=== PATIENT | female | born 1975 | race Hispanic/Latino ===

== ENCOUNTER → 2018-08-25 | Day surgery (SDC) | payer BC ==
[~2018-08-25] MED LIST: FENTANYL CITRATE/PF 100MCG/2 ML INJ ONE; LEVOTHYROXINE112 MCG PO; LISINOPRIL10 MG PO; MIDAZOLAM HCL 2 MG/2 ML VIAL ONE; PROPOFOL IV EMULSION 10 MG/ML 50 ML VIAL ONE
--- OUTSIDE RECORDS SUMMARY | 2018-08-25 11:10 | XMS REPORT ---
Author Author [facility] Address Unknown Phone Unavailable Care Team Providers Care Film Reader Name Role Phone Unavailable Unavailable Problems This patient has no known problems. Allergies, Adverse Reactions, Alerts This patient has no known allergies or adverse reactions. Medications This patient has no known medications. Encounters Start Date/Time End Date/Time Encounter Type Admission Type Attending [facility] Care Department Encounter ID 2018-07-16 10:29:00 2018-07-16 10:29:00 Emergency E [id number]
--- OUTSIDE RECORDS SUMMARY | 2018-08-25 11:10 | XMS REPORT | Summary of Care ---
Author Author [facility] Organization [facility] Address Unknown Phone Unavailable Encounter GAUTAM Saldana(FIN) [id number] Date(s): 07/16/18 - 07/16/18 [facility] [address] [place] [address]- [phone] Encounter Diagnosis Colitis (Discharge Diagnosis) - 07/16/18 Hematuria (Discharge Diagnosis) - 07/16/18 Discharge Disposition: Home or Self Care Attending Physician: Valdemar Olivares MD Vital Signs Most recent to 1 2 oldest [Reference Range]: Height 165.1 cm (07/16/18 10:30 AM) Temperature Oral 97.9 DegF 98.2 DegF [96.4-99.1 DegF] (07/16/18 3:50 PM) (07/16/18 10:30 AM) Blood Pressure 107/63 mmHg 101/69 mmHg [90-140/60-90 mmHg] (07/16/18 3:50 PM) (07/16/18 10:30 AM) Respiratory Rate 18 BRMIN 18 BRMIN [14-20 BRMIN] (07/16/18 3:50 PM) (07/16/18 10:30 AM) Peripheral Pulse 83 bpm 93 bpm Rate [60-100 bpm] (07/16/18 3:50 PM) (07/16/18 10:30 AM) Weight 93.182 kg (07/16/18 10:30 AM) Body Mass Index 34.19 m2 (07/16/18 10:30 AM) Problem List No data available for this section Allergies, Adverse Reactions, Alerts Substance Reaction Severity Status NKDA Active Medications Bentyl 20 mg oral tablet 20 mg=1 tab, PO, QID-Before Meals, PRN Abdominal Pain, # 12 tab, 0 Refill(s) Start Date: 07/16/18 Stop Date: 07/19/18 Status: Ordered Cipro 500 mg, Route: PO, ONCE, Dosing Weight 93.182, kg, Priority: STAT, Start date: 0 07/16/18 13:50:00 CDT, Stop date: 07/16/18 13:50:00 CDT, ABX Indication: Intra-ab dominal Infection Start Date: 07/16/18 Stop Date: 07/16/18 Status: Completed Cipro 500 mg oral tablet 500 mg=1 tab, PO, Q12H, X 10 day, # 20 tab, 0 Refill(s) Start Date: 07/16/18 Stop Date: 07/26/18 Status: Ordered Flagyl 500 mg, Route: PO, ONCE, Dosing Weight 93.182, kg, Priority: STAT, Start date: 0 07/16/18 13:50:00 CDT, Stop date: 07/16/18 13:50:00 CDT, ABX Indication: Intra-ab dominal Infection Start Date: 07/16/18 Stop Date: 07/16/18 Status: Completed Flagyl 500 mg oral tablet 500 mg=1 tab, PO, Q8H, X 10 day, # 30 tab, 0 Refill(s) Start Date: 07/16/18 Stop Date: 07/26/18 Status: Ordered ketOROLAC 30 mg, 1 mL, Route: IVP, Drug form: INJ, ONCE, Dosing Weight 93.182, kg, Priorit y: STAT, Start date: 07/16/18 11:12:00 CDT, Stop date: 07/16/18 11:12:00 CDT Notes: (Same as:Toradol) IV bolus must be given >15 seconds. Give IM administration slowly and deeply into the muscle.Not for use > 4 days MEDICATION WASTE Product Size: 30 mgProduct Wasted: ___ mg Start Date: 07/16/18 Stop Date: 07/16/18 Status: Completed morphine Sulfate 4 mg, Route: IVP, ONCE, Dosing Weight 93.182, kg, Priority: STAT, Start date: 13:11:00 CDT, Stop date: 07/16/18 13:11:00 CDT Start Date: 07/16/18 Stop Date: 07/16/18 Status: Completed ondansetron 4 mg, 2 mL, Route: IVP, Drug form: INJ, ONCE, Dosing Weight 93.182, kg, Priority : STAT, Start date: 07/16/18 15:10:00 CDT, Stop date: 07/16/18 15:10:00 CDT Notes: (Same as: Zofran) MEDICATION WASTE Product Size: 4 mgProduct Was moises: 0 mg Start Date: 07/16/18 Stop Date: 07/16/18 Status: Completed ondansetron 4 mg, Route: IVP, Drug form: INJ, ONCE, Dosing Weight 93.182, kg, Priority: STAT , Start date: 07/16/18 13:11:00 CDT, Stop date: 07/16/18 13:11:00 CDT Start Date: 07/16/18 Stop Date: 07/16/18 Status: Completed Sodium Chloride 0.9% (Bolus) IV 1,000 mL, 1000 ml/hr, Infuse Over: 1 hr, Route: IV, 1,000, Drug form: INJ, ONCE, Priority: STAT, Dosing Weight 93.182 kg, Start date: 07/16/18 11:11:00 CDT, Stop date: 07/16/18 11:11:00 CDT Start Date: 07/16/18 Stop Date: 07/16/18 Status: Completed Zofran 4 mg oral tablet 4 mg=1 tab, PO, Q8H, PRN Nausea/vomiting, # 9 tab, 0 Refill(s) Start Date: 07/16/18 Stop Date: 07/19/18 Status: Ordered Results ELECTROLYTES Most recent to 1 oldest [Reference Range]: Sodium Lvl [135-145 139 mEq/L mEq/L] (07/16/18 11:29 AM) Potassium Lvl 3.8 mEq/L [3.5-5.1 mEq/L] (07/16/18 11:29 AM) Chloride Lvl [95-109 105 mEq/L mEq/L] (07/16/18 11:29 AM) CO2 [24-32 mEq/L] 25 mEq/L (07/16/18 11:29 AM) AGAP [10.0-20.0 12.8 mEq/L mEq/L] (07/16/18 11:29 AM) CHEM PANEL Most recent to 1 oldest [Reference Range]: Creatinine Lvl 0.98 mg/dL [0.50-1.40 mg/dL] (07/16/18 11:29 AM) eGFR 70 mL/min/1.73m2 1 *NA* (07/16/18 11:29 AM) BUN [7-22 mg/dL] 8 mg/dL (07/16/18 11:29 AM) B/C Ratio [6-25] 8 (07/16/18 11:29 AM) Glucose Lvl [70-99 87 mg/dL mg/dL] (07/16/18 11:29 AM) Total Protein 7.7 g/dL [6.4-8.4 g/dL] (07/16/18 11: AM) Albumin Lvl [3.5-5.0 3.0 g/dL g/dL] *LOW* (07/16/18: AM) Globulin [2.7-4.2 4.7 g/dL g/dL] *HI* (07/16/18 11: AM) A/G Ratio [0.7-1.6] 0.6 *LOW* (07/16/18 11: AM) Calcium Lvl 8.4 mg/dL [8.5-10.5 mg/dL] *LOW* (07/16/18 11:29 AM) ALT [0-65 unit/L] 12 unit/L (07/16/18 11:29 AM) AST [0-37 unit/L] 9 unit/L (07/16/18 11:29 AM) Alk Phos [39-136 70 unit/L unit/L] (07/16/18 11:29 AM) Bili Total [0.2-1.3 0.5 mg/dL mg/dL] (07/16/18 11:29 AM) Lipase Lvl [73-393 85 unit/L unit/L] (07/16/18 11:29 AM) 1Result Comment: The eGFR is calculated using the CKD-EPI formula. In most young, healthy individuals the eGFR will be >90 mL/min/1.73m2. The eGFR declines with age. An eGFR of 60-89 may be normal in some populations, particularly the elderly, for whom the CKD-EPI formula has not been extensively validated. Use of the eGFR is not recommended in the following populations: Individuals with unstable creatinine concentrations, including patients and those with serious co-morbid conditions. Patients with extremes in muscle mass or diet. The data above are obtained from the National Kidney Disease Education Program ( NKDEP) which additionally recommends that when the eGFR is used in patients with extremes of body mass index for purposes of drug dosing, the eGFR should be mul tiplied by the estimated BMI. ENDOCRINOLOGY Most recent to 1 oldest [Reference Range]: S Preg [Negative] Negative *NA* (07/16/18 11:29 AM) URINE AND STOOL Most recent to 1 oldest [Reference Range]: UA Turbidity [Clear] Slight Cloudy (07/16/18 11:29 AM) UA Color [Yellow] Amy *ABN* (07/16/18 11:29 AM) UA pH [5.0-8.0] 6.0 (07/16/18 11:29 AM) UA Spec Grav >=1.030 [<=1.030] *ABN* (07/16/18 11:29 AM) UA Glucose Negative [Negative] (07/16/18 11:29 AM) UA Blood [Negative] Large *ABN* (07/16/18 11:29 AM) UA Ketones 15 [Negative] *ABN* (07/16/18 11:29 AM) UA Protein Trace [Negative] *ABN* (07/16/18 11:29 AM) UA Urobilinogen 0.2 EU/dL 1 [0.1-1.0 EU/dL] (07/16/18 11:29 AM) UA Bili [Negative] Small *ABN* (07/16/18 11:29 AM) UA Leuk Est Negative [Negative] (07/16/18 11:29 AM) UA Nitrite Negative [Negative] (07/16/18 11:29 AM) UA WBC [0-5 /HPF] 1 /HPF (07/16/18 11:29 AM) UA RBC [0-2 /HPF] 43 /HPF *HI* (07/16/18 11:29 AM) UA Sq Epi [Few /LPF] Many /LPF *ABN* (07/16/18 11:29 AM) UA Mucus [None Seen Moderate /LPF /LPF] *ABN* (07/16/18 11:29 AM) 1Result Comment: Urobilinogen performed on the Clinitek analyzer. HEMATOLOGY Most recent to 1 oldest [Reference Range]: WBC [3.7-10.4 K/CMM] 15.9 K/CMM *HI* (07/16/18 11:29 AM) RBC [4.20-5.40 4.20 M/CMM M/CMM] (07/16/18 11:29 AM) Hgb [12.0-16.0 g/dL] 10.7 g/dL *LOW* (07/16/18:29 AM) Hct [36.0-48.0 %] 32.9 % *LOW* (07/16/18: AM) MCV [80.0-98.0 fL] 78.4 fL *LOW* (07/16/18:29 AM) MCH [27.0-31.0 pg] 25.4 pg *LOW* (07/16/18:29 AM) MCHC [32.0-36.0 32.4 g/dL g/dL] (07/16/18 11:29 AM) RDW [11.5-14.5 %] 14.8 % *HI* (07/16/18:29 AM) MPV [7.4-10.4 fL] 8.0 fL (07/16/18 11:29 AM) Platelet [133-450 226 K/CMM K/CMM] (07/16/18 11:29 AM) Segs [45.0-75.0 %] 82.8 % *HI* (07/16/18:29 AM) Lymphocytes 10.9 % [20.0-40.0 %] *LOW* (07/16/18 11:29 AM) Monocytes [2.0-12.0 5.6 % %] (07/16/18 11:29 AM) Eosinophils [0.0-4.0 0.2 % %] (07/16/18 11:29 AM) Basophils [0.0-1.0 0.5 % %] (07/16/18 11:29 AM) Neutrophils # 13.2 K/CMM [1.5-8.1 K/CMM] *HI* (07/16/18 11:29 AM) Lymphocytes # 1.7 K/CMM [1.0-5.5 K/CMM] (07/16/18 11:29 AM) Monocytes # [0.0-0.8 0.9 K/CMM K/CMM] *HI* (07/16/18 11:29 AM) Basophils # [0.0-0.2 0.1 K/CMM K/CMM] (07/16/18 11:29 AM) Microcyte [None 1+ Seen] *ABN* (07/16/18 11:29 AM) Immunizations No data available for this section Procedures No data available for this section Social History Social History Type Response Smoking Status Never smoker; Exposure to Tobacco Smoke None; Cigarette Smoking Last 365 Days No; Reg Smoking Cessation Counseling No entered on: 07/16/18 Assessment and Plan No data available for this section
--- OUTSIDE RECORDS SUMMARY | 2018-08-25 11:10 | XMS REPORT | Continuity of Care Document ---
Author Author [facility] Interface Address Unknown Phone Unavailable Problems Problem Status Onset Date Classification Date Reported Comments Source Colitis 07/16/2018 07/18/2018 [facility] Hematuria 07/16/2018 07/18/2018 [facility] HIGH BP/ABD PAIN Active 07/16/2018 [facility] Medications Medication Details Route Status Patient Instructions Ordering Provider Order Date Source Ondansetron 4 MG Oral Tablet [Zofran] 4 mg=1 tab, PO, Q8H, PRN Nausea/vomiting, # 9 tab, 0 Refill(s) Active 07/16/2018 [facility] Dicyclomine Hydrochloride 20 MG Oral Tablet [Bentyl] 20 mg=1 tab, PO, QID-Before Meals, PRN Abdominal Pain, # 12 tab, 0 Refill(s) Active 07/16/2018 [facility] Metronidazole 500 MG Oral Tablet [Flagyl] 500 mg=1 tab, PO, Q8H, X 10 day, # 30 tab, 0 Refill(s) Active 07/16/2018 [facility] Ciprofloxacin 500 MG Oral Tablet [Cipro] 500 mg=1 tab, PO, Q12H, X 10 day, # 20 tab, 0 Refill(s) Active 07/16/2018 [facility] Ondansetron 4 mg, 2 mL, Route: IVP, Drug form: INJ, ONCE, Dosing Weight 93.182, kg, Priority: STAT, Start date: 07/16/18 15:10:00 CDT, Stop date: 07/16/18 15:10:00 CDTNotes: (Same as: Zofran) MEDICATION WASTE Product Size: 4 mg Product Wasted: 0 mg Inactive 07/16/2018 [facility] Cipro 500 mg, Route: PO, ONCE, Dosing Weight 93.182, kg, Priority: STAT, Start date: 07/16/18 13:50:00 CDT, Stop date: 07/16/18 13:50:00 CDT, ABX Indication: Intra-abdominal Infection Inactive 07/16/2018 [facility] Flagyl 500 mg, Route: PO, ONCE, Dosing Weight 93.182, kg, Priority: STAT, Start date: 07/16/18 13:50:00 CDT, Stop date: 07/16/18 13:50:00 CDT, ABX Indication: Intra-abdominal Infection Inactive 07/16/2018 [facility] Ondansetron 4 mg, Route: IVP, Drug form: INJ, ONCE, Dosing Weight 93.182, kg, Priority: STAT, Start date: 07/16/18 13:11:00 CDT, Stop date: 07/16/18 13:11:00 CDT Inactive 07/16/2018 [facility] Morphine 4 mg, Route: IVP, ONCE, Dosing Weight 93.182, kg, Priority: STAT, Start date: 07/16/18 13:11:00 CDT, Stop date: 07/16/18 13:11:00 CDT Inactive 07/16/2018 [facility] Ketorolac 30 mg, 1 mL, Route: IVP, Drug form: INJ, ONCE, Dosing Weight 93.182, kg, Priority: STAT, Start date: 07/16/18 11:12:00 CDT, Stop date: 07/16/18 11:12:00 CDTNotes: (Same as:Toradol) IV bolus must be given >15 seconds. Give IM administration slowly and deeply into the muscle. Not for use > 4 days MEDICATION WASTE Product Size: 30 mg Product Wasted: ___ mg Inactive 07/16/2018 [facility] Sodium Chloride 0.9% (Bolus) IV 1,000 mL, 1000 ml/hr, Infuse Over: 1 hr, Route: IV, 1,000, Drug form: INJ, ONCE, Priority: STAT, Dosing Weight 93.182 kg, Start date: 07/16/18 11:11:00 CDT, Stop date: 07/16/18 11:11:00 CDT Inactive 07/16/2018 [facility] Allergies, Adverse Reactions, Alerts Substance Category Reaction Severity Reaction type Status Date Reported Comments Source Immunizations Immunization Date Given Site Status Last Updated Comments Source Results Order Name Results Value Reference Range Date Interpretation Comments Source CHEM PANEL Lipase Lvl 85 unit/L 73 - 393 07/16/2018 [facility] CHEM PANEL Globulin 4.7 g/dL 2.7 - 4.2 07/16/2018 [facility] CHEM PANEL A/G Ratio 0.6 0.7 - 1.6 07/16/2018 [facility] CHEM PANEL B/C Ratio 8 6 - 25 07/16/2018 [facility] CHEM PANEL AGAP 12.8 meq/L 10.0 - 20.0 07/16/2018 [facility] CHEM PANEL eGFR 70 mL/min/1.73m2 07/16/2018 Result Comment: The eGFR is calculated using the [...] from the National Kidney Disease Education Program (NKDEP) which additionally recommends that when the eGFR is used in patients with extremes of body mass index for purposes of drug dosing, the eGFR should be multiplied by the estimated BMI. [facility] CHEM PANEL Bili Total 0.5 mg/dL 0.2 - 1.3 07/16/2018 [facility] CHEM PANEL AST 9 unit/L 0 - 37 07/16/2018 [facility] CHEM PANEL Alk Phos 70 unit/L 39 - 136 07/16/2018 [facility] CHEM PANEL ALT 12 unit/L 0 - 65 07/16/2018 [facility] CHEM PANEL Albumin Lvl 3.0 g/dL 3.5 - 5.0 07/16/2018 [facility] CHEM PANEL Calcium Lvl 8.4 mg/dL 8.5 - 10.5 07/16/2018 [facility] CHEM PANEL Total Protein 7.7 g/dL 6.4 - 8.4 07/16/2018 [facility] CHEM PANEL Chloride Lvl 105 meq/L 95 - 109 07/16/2018 [facility] CHEM PANEL CO2 25 meq/L 24 - 32 07/16/2018 [facility] CHEM PANEL Potassium Lvl 3.8 meq/L 3.5 - 5.1 07/16/2018 [facility] CHEM PANEL Creatinine Lvl 0.98 mg/dL 0.50 - 1.40 07/16/2018 [facility] CHEM PANEL Sodium Lvl 139 meq/L 135 - 145 07/16/2018 [facility] CHEM PANEL BUN 8 mg/dL 7 - 22 07/16/2018 [facility] CHEM PANEL Glucose Lvl 87 mg/dL 70 - 99 07/16/2018 [facility] ENDOCRINOLOGY S Preg Negative *NA* (07/16/18 11:29 AM) Negative 07/16/2018 [facility] MCHC 32.4 g/dL 32.0 - 36.0 07/16/2018 [facility] MCH 25.4 pg 27.0 - 31.0 07/16/2018 [facility] MCV 78.4 fL 80.0 - 98.0 07/16/2018 [facility] MPV 8.0 fL 7.4 - 10.4 07/16/2018 [facility] RDW 14.8 % 11.5 - 14.5 07/16/2018 [facility] Platelet 226 K/CMM 133 - 450 07/16/2018 [facility] Hct 32.9 % 36.0 - 48.0 07/16/2018 [facility] Hgb 10.7 g/dL 12.0 - 16.0 07/16/2018 [facility] RBC 4.20 M/CMM 4.20 - 5.40 07/16/2018 [facility] WBC 15.9 K/CMM 3.7 - 10.4 07/16/2018 [facility] Segs 82.8 % 45.0 - 75.0 07/16/2018 [facility] Lymphocytes 10.9 % 20.0 - 40.0 07/16/2018 [facility] Neutrophils # 13.2 K/CMM 1.5 - 8.1 07/16/2018 [facility] Eosinophils 0.2 % 0.0 - 4.0 07/16/2018 [facility] Lymphocytes # 1.7 K/CMM 1.0 - 5.5 07/16/2018 [facility] Basophils 0.5 % 0.0 - 1.0 07/16/2018 [facility] Monocytes 5.6 % 2.0 - 12.0 07/16/2018 [facility] Basophils # 0.1 K/CMM 0.0 - 0.2 07/16/2018 [facility] Microcyte 1+ *ABN* (07/16/18 11:29 AM) None Seen 07/16/2018 [facility] Monocytes # 0.9 K/CMM 0.0 - 0.8 07/16/2018 [facility] URINE AND STOOL UA RBC 43 /HPF 0 - 2 07/16/2018 [facility] URINE AND STOOL UA WBC 1 /HPF 0 - 5 07/16/2018 [facility] URINE AND STOOL UA Bili Small *ABN* (07/16/18 11:29 AM) Negative 07/16/2018 [facility] URINE AND STOOL UA Glucose Negative (07/16/18 11:29 AM) Negative 07/16/2018 [facility] URINE AND STOOL UA Ketones 15 *ABN* (07/16/18 11:29 AM) Negative 07/16/2018 [facility] URINE AND STOOL UA Blood Large *ABN* (07/16/18 11:29 AM) Negative 07/16/2018 [facility] URINE AND STOOL UA Sq Epi Many /LPF Few /LPF 07/16/2018 [facility] URINE AND STOOL UA Nitrite Negative (07/16/18 11:29 AM) Negative 07/16/2018 [facility] URINE AND STOOL UA Leuk Est Negative (07/16/18 11:29 AM) Negative 07/16/2018 [facility] URINE AND STOOL UA Urobilinogen 0.2 EU/dL 0.1 - 1.0 07/16/2018 Result Comment: Urobilinogen performed on the Clinitek analyzer. [facility] URINE AND STOOL UA Mucus Moderate /LPF None Seen /LPF 07/16/2018 [facility] URINE AND STOOL UA Protein Trace *ABN* (07/16/18 11:29 AM) Negative 07/16/2018 [facility] URINE AND STOOL UA pH 6.0 5.0 - 8.0 07/16/2018 [facility] URINE AND STOOL UA Color Amy *ABN* (07/16/18 11:29 AM) Yellow 07/16/2018 [facility] URINE AND STOOL UA Turbidity Slight Cloudy (07/16/18 11:29 AM) Clear 07/16/2018 [facility] URINE AND STOOL UA Spec Grav >=1.030 *ABN* (07/16/18 11:29 AM) <=1.030 07/16/2018 [facility] ED Abdomen/Pelvis IV contrast only CT ED Abdomen/Pelvis IV contrast only CT Study: ED Abdomen/Pelvis IV contrast only CT Clinical Indication: Diffuse abdominal pain Comparison: None TECHNIQUE: Multiple axial CT images of the abdomen and pelvis were acquired following the administration of intravenous contrast. Sagittal and coronal reformatted images were performed. CT imaging performed at this location utilizes radiation dose optimization techniques which include one or more of the following: -Automated exposure control -Adjustment of the mA and/or kV according to patient size -Use of iterative reconstruction technique CT Radiation Dose DLP 1175.71 mGy-cm FINDINGS: The visualized lung bases are clear bilaterally. Scattered subcentimeter hepatic hypodense cysts are seen with largest measuring 6 mm. Gallbladder, pancreas, spleen, adrenal glands, and kidneys are normal in appearance. No intrahepatic or extrahepatic biliary duct dilatation is seen. Urinary bladder is under distended. Uterus and visualized right ovary are unremarkable. 3.6 cm hypodense left ovarian cyst is seen, may represent corpus luteal cyst. There is diffuse wall thickening of the ascending, transverse, and descending colon with mucosal enhancement, compatible with colitis. The remaining visualized hollow viscera and appendix are unremarkable. No intraperitoneal free air, free fluid, or pathologic adenopathy is seen. The superficial soft tissues are unremarkable. No suspicious osseous lesions are seen. IMPRESSION: 1. Findings compatible with diffuse colitis which may be infectious or inflammatory in etiology. SL: [id number] 07/16/2018 - - Read by: Jim Linares MD Dictated Date/time: 07/16/18 13:41 Electronically Signed by: Jim Linares MD 07/16/18 13:44 FINAL REPORT [facility] Vital Signs Vital Sign Value Date Comments Source Systolic (mm Hg) 107 07/16/2018 [facility] Diastolic (mm Hg) 63 07/16/2018 [facility] Heart Rate 83 07/16/2018 [facility] Respitory Rate 18 07/16/2018 [facility] Temperature Oral (F) 97.9 F 07/16/2018 [facility] Weight 93.182 07/16/2018 [facility] BMI Calculated 34.19 07/16/2018 [facility] Height 165.1 cm 07/16/2018 [facility] Systolic (mm Hg) 101 07/16/2018 [facility] Diastolic (mm Hg) 69 07/16/2018 [facility] Temperature Oral (F) 98.2 F 07/16/2018 [facility] Respitory Rate 18 07/16/2018 [facility] Heart Rate 93 07/16/2018 [facility] Encounters Location Location Details Encounter Type Encounter Number Reason For Visit Attending Provider ADM Date DC Date Status Source [facility] Emergency [id number] Yobani Forrest 11/06/2016 11/06/2016 [facility] Emergency [id number] Valdemar Olivares 07/16/2018 07/16/2018 [facility] Procedures Procedure Code Date Perfomer Comments Source
--- OUTSIDE RECORDS SUMMARY | 2018-08-25 11:10 | XMS REPORT | Summary of Care ---
Author Author [facility] Organization [facility] Address Unknown Phone Unavailable Encounter HQ Encntr_alias(FIN) [id number] Date(s): 11/05/16 - 11/05/16 [facility] [address] [place] [address]- Discharge Disposition: ED Registered In Error Attending Physician: Yobani Forrest MD Vital Signs No data available for this section Problem List No data available for this section Allergies, Adverse Reactions, Alerts No data available for this section Medications No data available for this section Results No data available for this section Immunizations No data available for this section Procedures No data available for this section Social History No data available for this section Assessment and Plan No data available for this section
[2018-08-25 13:35] VITALS: BP 119/69
--- NOTE | 2018-08-25 16:40 | Operative Report ---
DATE OF PROCEDURE: 08/25/2018 SURGEON: Adebayo Flynn MD PROCEDURE PERFORMED: Colonoscopy. PREOPERATIVE DIAGNOSIS: Colitis by history with diarrhea. POSTOPERATIVE DIAGNOSIS: Nonspecific colitis. PREOPERATIVE MEDICATIONS: Consisted of IV conscious sedation administered by MAC anesthesia. PROCEDURE IN DETAIL: After a normal digital rectal examination, Olympus ISIS video colonoscope was inserted into the patient's rectum and advanced without difficulty to the level of cecum. The colon was studied from that level back down to the rectum. No polypoid lesions, tumors, masses, or inflammatory changes were encountered. Lining appeared to be fairly normal, random biopsies were obtained in the cecum, ascending colon, transverse colon, descending colon, sigmoid, and rectum looking for evidence of microscopic colitis. The colonoscope was withdrawn from the patient's rectum and procedure was ended. Adebayo Flynn MD SAF/MODL /[id number]
== END | disposition home or self-care (01) ==
LOC: OR 11:08
PROVIDERS: ATTEND Internal Medicine Gastroenterology
DX: K52.9 Noninfective gastroenteritis and colitis, unspecified (principal); I10 Essential (primary) hypertension; R00.1 Bradycardia, unspecified; K80.20 Calculus of gallbladder without cholecystitis without obstruction; Z01.810 Encounter for preprocedural cardiovascular examination; Z68.33 Body mass index [BMI] 33.0-33.9, adult
CPT/HCPCS: 45380; 81025; 93005; J2250; J2704